=== PATIENT | male | born 1995 | race Caucasian/White ===

== ENCOUNTER → 2021-10-06 08:16 | Outpatient (CLI) | payer OTHER, SELFPAY ==
--- NOTE | 2021-10-06 | DI.RAD.S_ITS ---
PROCEDURE: FL SHOULDER INJECTION MR/CT RT INDICATIONS: PAIN IN RT SHOULDER COMPARISON: None. TECHNIQUE: The indications, alternatives, benefits, risks, and complications of the procedure were explained to the patient. Written informed consent was obtained and placed in the chart. The shoulder was examined fluoroscopically and a site for needle placement chosen for entry into the glenohumeral joint from an anterior approach. The skin was prepped and draped in a sterile fashion, and 1% lidocaine infiltrated from skin down to joint capsule. A spinal needle was inserted into the glenohumeral joint, and a small amount of iodinated contrast media injected to confirm intra-articular placement of the needle tip. This was followed by approximately 12 mL dilute solution of a gadolinium containing MR contrast agent. The needle was removed and a dressing was applied. The patient was given postprocedural instructions and sent to the MR suite for MR imaging. FINDINGS: A single fluoroscopic spot image demonstrates intra-articular location of injected iodinated contrast. IMPRESSION: Successful fluoroscopically guided administration of dilute Gadolinium solution into the shoulder joint for MR arthrogram. Dictated by: Delia Contreras MD, PhD on 10/06/2021 at 15:11 Approved by: Delia Contreras MD, PhD on 10/06/2021 at 15:11
--- NOTE | 2021-10-06 | DI.MRI.S_ITS ---
PROCEDURE: MR SHOULDER RT W CON INDICATIONS: PAIN IN RT SHOULDER TECHNIQUE: After the administration of 12 mL of dilute intra-articular Gadolinium contrast, oblique coronal T1 and T2 spin echo with fat saturation, oblique sagittal T1 spin echo with and without fat saturation, oblique sagittal T2 fast spin echo with fat saturation, axial T1 spin echo with fat saturation through the shoulder. COMPARISON: None. FINDINGS: Image quality: Excellent. Rotator cuff: Mild thickening and increased signal intensity are seen within the distal supraspinatus and infraspinatus tendons. Additionally, mild edema within the supraspinatus muscle is suspected to be related to the arthrogram injection rather than true pathology, but a muscle strain could appear similarly. The teres minor and subscapularis tendons are intact. There is no significant rotator cuff muscle atrophy. Bones and bursae: No acute trabecular bone injury. Tiny chronic traction cystic changes are seen at the posterosuperior humeral head. No focal glenohumeral cartilage loss is seen. Mild degenerative changes are seen at the acromioclavicular joint. There is trace T1 hypointense subacromial/subdeltoid bursal fluid that may also be related to the arthrogram injection. No intra-articular loose body is seen within the glenohumeral joint space. Capsule and soft tissues: The glenoid labrum is intact without uptake of intra-articular contrast material. The proximal biceps long head tendon demonstrates moderate tendinosis. The glenohumeral ligaments are intact. IMPRESSION: 1. Moderate tendinosis of the intra-articular portion of the biceps long head tendon. 2. Intact glenoid labrum. 3. Mild distal supraspinatus and infraspinatus tendinosis. No definite rotator cuff tendon tear is seen, although a small amount of edema is seen within the distal supraspinatus muscle/tendon that is suspected to be secondary to arthrogram technique rather than acute muscle strain or intrasubstance tearing. 4. Mild acromioclavicular joint osteoarthrosis. Dictated by: Gaurav Valadez M.D. on 10/06/2021 at 9:45 Approved by: Gaurav Valadez M.D. on 10/06/2021 at 9:53
== END ==
PROVIDERS: PCP Family Medicine; Referring Provider Orthopaedic Surgery; Visit Provider Orthopaedic Surgery
DX: M19.011 Primary osteoarthritis, right shoulder (principal); M25.511 Pain in right shoulder
CPT/HCPCS: 23350; 73222; 77002